=== PATIENT | female | born 1995 | race Two or more races ===

== ENCOUNTER 2020-08-29 14:13 | Outpatient (CLI) | payer OTHER | END 2020-08-29 14:21 | disposition home or self-care (01) | LOC: RX STUDY 14:13 | PROVIDERS: ATTEND Surgery | DX: K59.09 Other constipation (principal) ==

== ENCOUNTER 2022-01-31 08:16 | Outpatient (CLI) | payer OTHER | END 2022-01-31 10:48 | disposition home or self-care (01) | LOC: PRENATAL 08:16 | PROVIDERS: ATTEND Obstetrics & Gynecology Maternal & Fetal Medicine | DX: O26.849 Uterine size-date discrepancy, unspecified trimester (principal); O36.8199 Decreased fetal movements, unspecified trimester, other fetus; Z3A.32 32 weeks gestation of pregnancy ==

== ENCOUNTER 2023-09-05 09:15 | Outpatient (CLI) | payer OTHER | END 2023-09-05 09:16 | disposition home or self-care (01) | LOC: PRENATAL 09:15 | PROVIDERS: ATTEND Obstetrics & Gynecology Maternal & Fetal Medicine | DX: O36.80X0 Pregnancy with inconclusive fetal viability, not applicable or unspecified (principal); Z36.82 Encounter for antenatal screening for nuchal translucency; O34.219 Maternal care for unspecified type scar from previous cesarean delivery; O16.1 Unspecified maternal hypertension, first trimester; O99.281 Endocrine, nutritional and metabolic diseases complicating pregnancy, first trimester; Z3A.12 12 weeks gestation of pregnancy; Z87.51 Personal history of pre-term labor ==

== ENCOUNTER 2023-11-05 08:30 | Outpatient (CLI) | payer OTHER ==
[2023-11-05] MEDS ORDERED: NIFEDIPINE ER30 M1 PO (09:39)
== END 2023-11-05 08:31 | disposition home or self-care (01) ==
LOC: PRENATAL 08:30
PROVIDERS: ATTEND Obstetrics & Gynecology Maternal & Fetal Medicine
DX: O35.3XX0 Maternal care for (suspected) damage to fetus from viral disease in mother, not applicable or unspecified (principal); O44.00 Complete placenta previa NOS or without hemorrhage, unspecified trimester; O34.219 Maternal care for unspecified type scar from previous cesarean delivery; O10.019 Pre-existing essential hypertension complicating pregnancy, unspecified trimester; O99.280 Endocrine, nutritional and metabolic diseases complicating pregnancy, unspecified trimester; O60.00 Preterm labor without delivery, unspecified trimester; Z3A.20 20 weeks gestation of pregnancy